=== PATIENT | female | born 2000 | race American Indian/Alaskan Native ===

== ENCOUNTER 2020-08-12 11:18 | Emergency (ER) | payer SELFPAY ==
[2020-08-12 13:24] VITALS: BP 106/62
[2020-08-12 13:24] LABS: HCG Qualitative,Urine Negative (Negative)
[2020-08-12] MEDS ORDERED: IBUPROFEN 600 MG TAB PO ONE (13:53)
--- NOTE | 2020-08-12 14:14 | Emergency Department Report ---
ED Lower Extremity HPI - General Chief Complaint: Extremity Injury, Lower Stated Complaint: RT KNEE INJURY Time Seen by Provider: 08/12/20 13:16 Source: patient Mode of arrival: Ambulatory Limitations: No Limitations - History of Present Illness Initial Comments: 20-year-old female states that she does pole fitness last night while doing exercises with the pole she heard a pop in her right knee. She is presents today with just ongoing pain of the right knee. she ambulates with a limp she denies any direct blow or fall. She has no past medical history does report hitting her knee in the past while doing pole fitness. She last took Tylenol at around 8 AM Complaint: knee injury -: Last night Injury: Knee: Right Place: home Severity: moderate Severity scale (0 -10): 7 Improves With: other (Tylenol) Context: other (Working out heard a pop) - Related Data Previous Rx's Medication Instructions Recorded Last Taken Type Ibuprofen [Motrin] 600 mg PO Q8H PRN #21 tablet 08/12/20 Unknown Rx Allergies Allergy/AdvReac Type Severity Reaction Status Date / Time No Known Allergies Allergy Unverified 08/12/20 11:46 ED Review of Systems ROS: Stated complaint: RT KNEE INJURY Other details as noted in HPI Comment: All other systems reviewed and negative Constitutional: denies: chills, fever ENT: denies: ear pain, dental pain Cardiovascular: denies: chest pain, palpitations Gastrointestinal: denies: abdominal pain Musculoskeletal: other (Right knee pain). denies: back pain Skin: denies: rash, lesions Neurological: denies: headache, weakness Psychiatric: denies: anxiety, depression ED Past Medical Hx - Past Medical History Hx Asthma: Yes - Surgical History Past Surgical History?: No - Social History Smoking Status: Never Smoker - Medications Home Medications: Home Medications Medication Instructions Recorded Confirmed Last Taken Type Ibuprofen [Motrin] 600 mg PO Q8H PRN #21 tablet 08/12/20 Unknown Rx ED Physical Exam - General Limitations: No Limitations General appearance: alert, in no apparent distress - Head Head exam: Present: atraumatic - Eye Eye exam: Present: normal appearance - ENT ENT exam: Present: mucous membranes moist - Respiratory Respiratory exam: Present: normal lung sounds bilaterally. Absent: respiratory distress, wheezes - Cardiovascular Cardiovascular Exam: Present: regular rate, normal heart sounds - Rectal Rectal exam: Present: deferred - Extremities Exam Extremities exam: Present: other (Right knee ecchymosis ecchymosis noted to below the anterior knee and medial lateral. There is no swelling. Patient complains of pain with flexion and extension she is able to completely extend her knee but has difficulty with flexion. No edema noted distal pulses intact sensation intact) - Neurological Exam Neurological exam: Present: oriented X3 - Psychiatric Psychiatric exam: Present: normal affect - Skin Skin exam: Present: warm, dry, ecchymosis (Anterior and medial right knee) ED Course Vital Signs 08/12/20 08/12/20 08/12/20 11:47 13:13 14:40 Temperature 97.9 F 97.7 F Pulse Rate 78 91 H Respiratory 16 14 18 Rate Blood Pressure 116/62 106/62 O2 Sat by Pulse 100 96 Oximetry - Reevaluation(s) Reevaluation #1: 08/12/20 16:55 Patient in no acute distress doing well ED Lower Extremity MDM - Radiology Data Radiology results: report reviewed xRAY OF LEFT KNEE FINDINGS: BONES / JOINT(S): No acute fracture or subluxation. No significant arthritis. SOFT TISSUES: No significant abnormality. ADDITIONAL FINDINGS: None. - Medical Decision Making X-ray of the right knee no acute findings plan to discharge patient with right knee immobilizer and crutches. Patient to follow-up orthopedist to rule out any ligamentous injury Critical Care Time: No Critical care attestation.: If time is entered above; I have spent that time in minutes in the direct care of this critically ill patient, excluding procedure time. ED Disposition Clinical Impression: Right knee sprain Qualifiers: Encounter type: initial encounter Involved ligament of knee: medial collateral ligament Qualified Code(s): S83.411A - Sprain of medial collateral ligament of right knee, initial encounter Knee contusion Qualifiers: Encounter type: initial encounter Laterality: right Qualified Code(s): S80.01XA - Contusion of right knee, initial encounter Disposition: TO HOME OR SELFCARE Is pt being admited?: No Does the pt Need Aspirin: No Condition: Stable Instructions: Knee Sprain, Adult, [id number], Contusion Additional Instructions: Use your right knee immobilizer when walking remove at bedtime. You should follow-up with orthopedic physician of your choice or you may follow-up with Dr. Curtis. Take Advil as prescribed for pain okay to use cold compress on and off for 10 minutes at a time for the next 2 days. Then you can start using warm compress Prescriptions: Ibuprofen [Motrin] 600 mg PO Q8H PRN #21 tablet PRN Reason: Pain Referrals: PRIMARY CARE,MD [Primary Care Provider] - 3-5 Days ARUNA CURTIS MD [Staff Physician] - 3-5 Days Time of Disposition: 16:36
--- NOTE | 2020-08-12 16:12 | XRay Report ---
RIGHT KNEE 2 VIEW(S) INDICATION / CLINICAL INFORMATION: knee injury COMPARISON: None available. FINDINGS: BONES / JOINT(S): No acute fracture or subluxation. No significant arthritis. SOFT TISSUES: No significant abnormality. ADDITIONAL FINDINGS: None. Signer Name: Roger Mendoza MD Signed: 08/12/2020 4:08 PM Workstation Name: [id number]
== END 2020-08-12 17:27 | disposition home or self-care (01) ==
LOC: ED 11:18
DX: S83.411A Sprain of medial collateral ligament of right knee, initial encounter (principal); S80.01XA Contusion of right knee, initial encounter; J45.909 Unspecified asthma, uncomplicated; Z79.899 Other long term (current) drug therapy; X50.9XXA Other and unspecified overexertion or strenuous movements or postures, initial encounter; Y93.B9 Activity, other involving muscle strengthening exercises; Y92.89 Other specified places as the place of occurrence of the external cause; Y99.8 Other external cause status
CPT/HCPCS: 81025